=== PATIENT | female | born 1960 ===

== ENCOUNTER 2023-01-03 09:23 | Outpatient (CLI) | payer MEDICAID ==
[2023-01-04] MEDS ORDERED: GADOTERATE MEGLUMINE 7.5 MMOL/15 ML VIAL IV ONE (11:14)
== END 2023-01-03 23:59 | disposition home or self-care (01) ==
LOC: RAD 09:23
PROVIDERS: ATTEND Specialist
DX: G06.0 Intracranial abscess and granuloma (principal); Z98.890 Other specified postprocedural states
CPT/HCPCS: 70553; A9575